=== PATIENT | female | born 1975 | race Two or more races ===

== ENCOUNTER 2019-10-10 08:30 | Inpatient (IN) | payer OTHER ==
[~2019-10-10] VITALS: Ht 154.9 cm; Wt 63.0 kg
[2019-10-10] MEDS ORDERED: ADULT LOW DOSE81 M1 PO (09:39)
[2019-10-15] MEDS ORDERED: LOVENOX30 MG/0.3 SUBCUTANEO (14:27)
== END 2019-10-15 16:46 | disposition home or self-care (01) | DRG 743 ==
LOC: SURG 10-12 07:00 → O/R 10-12 07:08 → OB/GYN 10-12 07:08 → SURG 10-12 08:30 → OB/GYN 10-13 08:38
PROVIDERS: Urology; ADMIT Obstetrics & Gynecology
PROC: 0UT70ZZ Resection of Bilateral Fallopian Tubes, Open Approach (ICD-10-PCS; 2019-10-12)
PROC: 0DNW0ZZ Release Peritoneum, Open Approach (ICD-10-PCS; 2019-10-12)
PROC: 0T788DZ Dilation of Bilateral Ureters with Intraluminal Device, Via Natural or Artificial Opening Endoscopic (ICD-10-PCS; 2019-10-12)
PROC: 0TN78ZZ Release Left Ureter, Via Natural or Artificial Opening Endoscopic (ICD-10-PCS; 2019-10-12)
PROC: 0TN68ZZ Release Right Ureter, Via Natural or Artificial Opening Endoscopic (ICD-10-PCS; 2019-10-12)
PROC: 0UB90ZZ Excision of Uterus, Open Approach (ICD-10-PCS; principal; 2019-10-12 07:00)
PROC: 0UT90ZZ Resection of Uterus, Open Approach (ICD-10-PCS; 2019-10-12 07:00)
DX: D25.1 Intramural leiomyoma of uterus (principal); D25.2 Subserosal leiomyoma of uterus; N80.0 Endometriosis of uterus; N73.6 Female pelvic peritoneal adhesions (postinfective); N83.292 Other ovarian cyst, left side

== ENCOUNTER 2019-11-18 10:13 | Outpatient (CLI) | payer OTHER ==
[~2019-11-18 10:13] MED LIST: ADULT LOW DOSE81 M1 PO; LOVENOX30 MG/0.3 SUBCUTANEO
== END 2019-11-18 10:29 | disposition home or self-care (01) ==
LOC: SONOGRAMA 10:13 → MAMO-SONO 10:15 → SONOGRAMA 10:29
DX: N13.1 Hydronephrosis with ureteral stricture, not elsewhere classified (principal)